=== PATIENT | female | born 1950 | race Caucasian/White ===

== ENCOUNTER 2017-10-04 11:56 | Day surgery (SDC) | payer MEDICARE ==
[~2017-10-04] VITALS: Ht 157.5 cm; Wt 60.6 kg
[~2017-10-04 11:56] MED LIST: CELE200C PO; CETI10TA24 PO; EZET10TA18 PO; LEVO25TA4 PO; MULT-224 PO; OXYC20TA42 PO; PROM25SU35 PR; PROM25TA10 PO; SIMV40TA3 PO; ZOLP-413 PO
[2017-10-04 12:42] VITALS: BP 122/77
[2017-10-04] MEDS ORDERED: LACTATED RINGERS 1,000 ML IV SCH (12:45)
[2017-10-04] MEDS ORDERED: PROPOFOL 10 MG/ML, 20ML ONE (13:51)
[2017-10-04] MEDS ORDERED: CIPROFLOXACIN/PMX 400MG/200ML 200 ML ONE (13:58)
[2017-10-04] MEDS ORDERED: CHLORHEXIDINE 15 ML BOTTLE MM ONE (14:00)
[2017-10-04] MEDS ORDERED: hydrALAzine 20 MG/ML, 1ML IV PRN (14:30)
[2017-10-04] MEDS ORDERED: OXYcodone 5 MG/5 ML ORAL.SOL UDC PO PRN (14:30)
[2017-10-04] MEDS ORDERED: PROMETHAZINE 12.5 MG SUPP PR PRN (14:30)
[2017-10-04] MEDS ORDERED: morphine SULFATE 10 MG/ML, 1ML IV PRN (14:30)
[2017-10-04] MEDS ORDERED: LABETALOL 5MG/ML, 20ML IV PRN (14:30)
[2017-10-04] MEDS ORDERED: ALBUTEROL SULFATE 2.5 MG/3 ML NPPB PRN (14:30)
[2017-10-04] MEDS ORDERED: ONDANSETRON 2MG/ML, 2ML IVPush PRN (14:30)
[2017-10-04] MEDS ORDERED: FENTANYL PF 100 MCG/2ML IV PRN (14:30)
[2017-10-04] MEDS ORDERED: MEPERIDINE/PF 25MG/0.5ML IVPush PRN (14:30)
[2017-10-04] MEDS ORDERED: MIDAZOLAM 1 MG/ML, 2ML IV PRN (14:30)
== END 2017-10-04 17:45 | disposition home or self-care (01) ==
LOC: OUT 11:56
PROVIDERS: ATTEND Internal Medicine Gastroenterology
DX: K25.9 Gastric ulcer, unspecified as acute or chronic, without hemorrhage or perforation (principal); E03.9 Hypothyroidism, unspecified; Z88.5 Allergy status to narcotic agent; Z88.8 Allergy status to other drugs, medicaments and biological substances; Z87.39 Personal history of other diseases of the musculoskeletal system and connective tissue
CPT/HCPCS: 43239; 43242; 88172; 88173; 88305; J0744; J2704; J7120